=== PATIENT | female | born 1955 | race Caucasian/White ===

== ENCOUNTER → 2021-01-29 | Outpatient (CLI) | payer BC, OTHER ==
[~2021-01-29] VITALS: Ht 172.7 cm; Wt 68.8 kg
[~2021-01-29] MED LIST: ESTR0.5T PO; LEVO125C4 PO; METO50TA7 PO
== END | disposition home or self-care (01) ==
LOC: PREOP 05:50
PROVIDERS: ATTEND Surgery
DX: Z01.818 Encounter for other preprocedural examination (principal)

== ENCOUNTER 2021-02-05 09:00 | Day surgery (SDC) | payer BC, OTHER ==
[~2021-02-05] VITALS: Ht 172.7 cm; Wt 68.8 kg
[2021-02-05] VITALS (7 sets, daily range): BP systolic 123–157; BP diastolic 61–80
--- NOTE | 2021-02-05 09:32 | Progress Note-Pre Operative ---
Pre-Operative Progress Note H&P Reviewed The H&P was reviewed, patient examined and no changes noted. Time Seen by Provider: 09:30 Date H&P Reviewed: Feb 05, 2021 Time H&P Reviewed: 09:30 Pre-Operative Diagnosis: Screening Colonoscopy DEEDEE SAL DO Feb 05, 2021 09:32
[2021-02-05] MEDS ORDERED: LACTATED RINGERS 1,000 ML IV STA (09:42)
[2021-02-05] MEDS ORDERED: LACTATED RINGERS 1,000 ML IV ONE (09:46)
[2021-02-05] MEDS ORDERED: PROPOFOL INJECTION 50 ML IV ONE (11:27)
[2021-02-05] MEDS ORDERED: MIDAZOLAM 2 MG/2 ML (VERSED) VIAL ONE (11:27)
--- NOTE | 2021-02-05 12:18 | Progress Note-Post Operative ---
Post-Operative Progess Note Surgeon (s)/Youth Services Librarian (s) Surgeon DEEDEE SAL DO Youth Services Librarian: none Pre-Operative Diagnosis Screening Colonoscopy Post-Operative Diagnosis polyps diverticula int hemorrhoids Procedure & Operative Findings Date of Procedure 02/05/21 Procedure Performed/Findings Colonoscopy with hot bx PROCEDURE NOTE: After informed consent was obtained, the patient was brought to the endoscopy suite, placed in bed in left lateral decubitus position. She was administered IV sedation by the UNIX ENGINEER who then monitored her vitals the entire time, heart rate, blood pressure and pulse ox and the scope was inserted, pushed all the way to about 120 cm and pushed into the cecum. On the way in I noted some diverticula and took a picture. Once in the Cecum I took a picture of appendiceal orifice and then slowly withdrew the scope insufflating to look circumferentially at the hermosillo looking the cecum, up the ascending colon to the hepatic flexure, then down the transverse colon to the splenic flexure and into the descending colon. In the sigmoid colon I saw a small polyp and did a hot biopsy; then into the rectal vault where I saw two more polyps and did another hot biopsy. Unable to retroflex the scope, so I took a picture of the internal hemorrhoids as I pulled the scope out. The patient tolerated the procedure. She was recovered in endoscopy suite. Anesthesia Type IV sedation by UNIX ENGINEER Estimated Blood Loss Estimated blood loss (mL): scant Specimens/Packing Specimens Removed sigmoid polyp rectal polyp DEEDEE SAL DO Feb 05, 2021 12:18
--- NOTE | 2021-02-05 12:19 | Endoscopy Discharge Instruct ---
Endo Procedure/Findings Findings 1.: Polyp 2.: Diverticulosis 3.: Internal Hemorrhoids Discharge Instructions - Activity: You might feel a little sleepy until tomorrow. This is due to the medicine you received to relax you. Until tomorrow, you should: NOT drive a car, operate machinery or power tools. NOT drink any alcoholic beverages. NOT make any important decisions or sign importortant papers. Do not return to work until tomorrow, unless otherwise instructed. Resume previous activities tomorrow. Diet: Start by taking liquids. If you tolerate liquids, advance to solid food. 1.: Colonscopy in 5 years Notify Physician - If you experience excessive bleeding, unusual abdominal pain, fever, or chest pain, contact your doctor immediately. DEEDEE SAL DO Feb 05, 2021 12:19
--- NOTE | 2021-02-05 13:22 | Anesthesia-General Post-Op ---
MAC Patient Condition Mental Status/LOC: Same as Preop Cardiovascular: Satisfactory Nausea/Vomiting: Absent Respiratory: Satisfactory Pain: Controlled Complications: Absent Post Op Complications Complications None Follow Up Care/Instructions Patient Instructions None needed. Anesthesiology Discharge Order Discharge Order Patient is doing well, no complaints, stable vital signs, no apparent adverse anesthesia problems. No complications reported per nursing. GRANT BRISENO CRNA Feb 05, 2021 13:22
== END 2021-02-05 13:15 | disposition home or self-care (01) ==
LOC: ENDO 09:00
PROVIDERS: ATTEND Surgery
DX: Z12.11 Encounter for screening for malignant neoplasm of colon (principal); D12.5 Benign neoplasm of sigmoid colon; K62.1 Rectal polyp; K57.90 Diverticulosis of intestine, part unspecified, without perforation or abscess without bleeding; K64.8 Other hemorrhoids; I10 Essential (primary) hypertension; R01.1 Cardiac murmur, unspecified; E07.9 Disorder of thyroid, unspecified; Z87.891 Personal history of nicotine dependence; Z79.890 Hormone replacement therapy; Z79.899 Other long term (current) drug therapy; Z88.8 Allergy status to other drugs, medicaments and biological substances

== ENCOUNTER 2022-08-28 05:34 | Outpatient (CLI) | payer BC ==
[~2022-08-28] VITALS: Ht 160 cm; Wt 88.5 kg
[2022-08-28] MEDS ORDERED: ASPI-999 PO (10:30)
[2022-08-28] MEDS ORDERED: MULT-1136 PO (10:30)
== END 2022-08-28 10:39 | disposition home or self-care (01) ==
LOC: PREOP 05:34
PROVIDERS: ATTEND Surgery
DX: Z01.818 Encounter for other preprocedural examination (principal)

== ENCOUNTER 2022-09-05 09:37 | Day surgery (SDC) | payer BC ==
[~2022-09-05] VITALS: Ht 160 cm; Wt 88.5 kg
[~2022-09-05 09:37] MED LIST changes: +ASPI-999 PO; +MULT-1136 PO
[2022-09-05] MEDS ORDERED: LACTATED RINGERS 1,000 ML IV STA (09:47)
[2022-09-05 10:00] VITALS: BP 162/78
[2022-09-05] MEDS ORDERED: HURRICAINE EXT TUBE (BENZOCAINE) XX PRN (10:00)
--- NOTE | 2022-09-05 10:44 | Progress Note-Pre Operative ---
Pre-Operative Progress Note Date of Available H&P: August 13, 2022 Date H&P Reviewed: September 05, 2022 Time H&P Reviewed: 10:42 History & Physical: H&P Reviewed, Patient Examed, No changes noted Pre-Operative Diagnosis: anemia DEEDEE SAL DO September 05, 2022 10:44
[2022-09-05] MEDS ORDERED: proPOfol 200 MG/20 ML (DIPRIVAN) VIAL IV ONE (10:45)
[2022-09-05 11:05] VITALS: BP 172/77
[2022-09-05 11:10] VITALS: BP 156/73
--- NOTE | 2022-09-05 11:16 | Progress Note-Post Operative ---
Post-Operative Progess Note Surgeon (s)/Radiotelegraph Operator (s) Surgeon DEEDEE SAL DO Radiotelegraph Operator: none Pre-Operative Diagnosis anemia Post-Operative Diagnosis Gastritis Hiatal Hernia Procedure & Operative Findings Date of Procedure 09/05/22 Procedure Performed/Findings EGD with biopsy PROCEDURE NOTE: After informed consent was obtained, the patient was brought to the endoscopy suite, placed in bed in left lateral decubitus position. She was administered IV sedation by the CHRISTMAS BELL RINGER who then monitored vitals the entire time, heart rate, blood pressure and pulse ox and the scope was inserted down the mouth through the esophagus into the stomach. On the way down, noted some mild esophagitis, took a picture, pushed into the stomach, pushed past the antrum into the duodenum. First, second and possibly third portion of duodenum looked good. Pulled back and did a biopsy of the antrum, then retroflexed the scope, saw a small 1-2cm Grade II-III AFS hiatal hernia, took a picture of this and then pulled the scope into the GE junction, took another picture of the hiatal hernia and then did a biopsy of the GE junction. Pushed the scope back into the stomach, suctioned all the air out of the stomach. At this point pulled the scope up the esophagus and out the mouth. I did not see anything that could explain her anemia. The patient tolerated the procedure, and she recovered in endoscopy suite. Anesthesia Type IV sedation by Anesthesia Estimated Blood Loss Estimated blood loss (mL): scant Specimens/Packing Specimens Removed antral bx Body of stomach bx GE jxn bx DEEDEE SAL DO September 05, 2022 11:16
--- NOTE | 2022-09-05 11:17 | Endoscopy Discharge Instruct ---
Endo Procedure/Findings Findings 1.: Gastritis 2.: Hiatal Hernia Discharge Instructions - Activity: You might feel a little sleepy until tomorrow. This is due to the medicine you received to relax you. Until tomorrow, you should: NOT drive a car, operate machinery or power tools. NOT drink any alcoholic beverages. NOT make any important decisions or sign importortant papers. Do not return to work until tomorrow, unless otherwise instructed. Resume previous activities tomorrow. Diet: Start by taking liquids. If you tolerate liquids, advance to solid food. 1.: EGD in 3 years Notify Physician - If you experience excessive bleeding, unusual abdominal pain, fever, or chest pain, contact your doctor immediately. Follow-Up: Other Follow up in my office in one week DEEDEE SAL DO September 05, 2022 11:17
[2022-09-05 11:36] VITALS: BP 156/73
--- NOTE | 2022-09-05 12:56 | Anesthesia-General Post-Op ---
MAC Patient Condition Mental Status/LOC: Same as Preop Cardiovascular: Satisfactory Nausea/Vomiting: Absent Respiratory: Satisfactory Pain: Controlled Complications: Absent Post Op Complications Complications None Follow Up Care/Instructions Patient Instructions None needed. Anesthesiology Discharge Order Discharge Order Patient was doing well this morning after the procedure with no complaints, stable vital signs, no apparent adverse anesthesia problems. No complications reported per nursing. NIALL CRUM DO September 05, 2022 12:56
== END 2022-09-05 11:45 | disposition home or self-care (01) ==
LOC: ENDO 09:37
PROVIDERS: ATTEND Surgery
DX: K29.50 Unspecified chronic gastritis without bleeding (principal); K20.90 Esophagitis, unspecified without bleeding; K31.89 Other diseases of stomach and duodenum; K44.9 Diaphragmatic hernia without obstruction or gangrene; D64.9 Anemia, unspecified; Z28.310 Unvaccinated for COVID-19; Z87.891 Personal history of nicotine dependence